=== PATIENT | female | born 2000 | race Hispanic/Latino ===

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

== ENCOUNTER 2020-02-18 21:43 | Emergency (ER) | payer OTHER | END 2020-02-18 22:16 | disposition home or self-care (01) | LOC: ERS 21:43 | DX: K02.9 Dental caries, unspecified (principal) | CPT/HCPCS: 99282 ==

== ENCOUNTER 2020-02-19 23:25 | Emergency (ER) | payer OTHER, SELFPAY ==
[~2020-02-19 23:25] MED LIST: Iopamidol-370 76% 500 ML 1 ML ONE
[2020-02-19] MEDS ORDERED: Clindamycin/D5W 600 mg/50 ml Premix Bag ONE (23:43)
[2020-02-19 23:59] LABS: #Lymphocytes 0.8 thou/uL (1.20-3.40); #Monocytes 0.6 thou/uL (0.11-0.59); #Neutrophils 10.2 thou/uL (1.40-6.50); %Basophils 0.1 % (0.0-1.0); %Eosinophils 0.1 % (0.0-10.0); %Lymphocytes 7.1 % (28.0-48.0); %Monocytes 5.4 % (0.0-4.0); %Neutrophils 87.3 % (31.0-61.0); Hemoglobin 14.4 g/dL (12.0-16.0); Mean Corpuscular HGB CONC 32.9 g/dL (32.0-36.0); Mean Corpuscular Hemoglobin 31.1 pg (25.0-35.0); Mean Corpuscular Volume 94.5 fL (78.0-98.0); Mean Platelet Volume 9.2 fL (7.4-10.4); Platelet Count 174 thou/uL (130-400); RBC Distribution Width 11.3 % (11.5-14.5); Red Blood Cell (RBC) Count 4.63 mill/uL (4.00-5.20); White Blood Cell (WBC) Count 11.7 thou/uL (4.8-10.8)
[2020-02-20] MEDS ORDERED: Acetaminophen 500 MG TAB ONE (00:09)
[2020-02-20 00:19] LABS: BHCG - Serum Negative (NEGATIVE); Pregs Control Background? CLEAR/WHITE (CLR/WHITE); Pregs Control Bar Appear? YES (CONTROL BAR)
[2020-02-20 00:20] LABS: ALT (SGPT) 8 U/L (8-55); AST (SGOT) 11 U/L (5-34); Albumin 4.8 g/dL (3.5-5.0); Alkaline Phosphatase 71 U/L (40-100); Anion Gap 14 mmol/L (10-20); BUN (Urea Nitrogen) 7 mg/dL (7.0-18.7); Bilirubin, Total 1.3 mg/dL (0.2-1.2); Calc. Creatinine Clearance 0 mL/min (70-130); Calcium 9.9 mg/dL (7.8-10.44); Carbon Dioxide 27 mmol/L (22-29); Chloride 99 mmol/L (98-107); Estimated GFR-MDRD Greater than 90; Globulin 3.4 g/dL (2.4-3.5); Glucose 135 mg/dL (70-105); Potassium 4.1 mmol/L (3.5-5.1); Protein, Total 8.2 g/dL (6.0-8.3); Sodium 136 mmol/L (136-145)
[2020-02-20] MEDS ORDERED: Lidocaine 1% (PF) 30 ML VIAL ONE (00:43)
--- NOTE | 2020-02-20 07:33 | CT ---
PRELIMINARY REPORT/[facility]/EMERGENCY AFTER HOURS PROCEDURE: A subtle lucency is seen in the left frontal incisor in the alveolar ridge; images [id number]. Possible odontogenic cyst. Osteomyelitis is also in the differential. Findings were discussed over the phone with Dr. Alejo at 12:36am REHAB TECH on 02/20/2020. Addendum electronically signed by Bj Andrade MD on February 20, 2020 12:40:[address] OF THE FACIAL BONES/SINUSES WITH IV CONTRAST CLINICAL HISTORY: Facial swelling and tooth ache. TECHNIQUE: Serial axial images obtained. Sagittal reconstructed images obtained. Coronal reconstru cted images obtained. Exam is performed with 100 mL of Isovue-370 intravenous contrast. Per PQRS, CT exam is performed using one or more of the following dose reduction techniques: Automated exposure control, adjustment of the mA and/or KV according to patient size, or use of iterative reconstruction techniques. COMPARISON: None. FINDINGS: Focal dental abscess is seen anterior to the left maxilla measuring 7.1 x 16 x 17 mm, w ith surrounding soft tissue edema consistent with cellulitis. Negative for acute fracture. The globes and orbits are unremarkable. The pterygoid plates, zygomatic arches, temporomandibular joints , and mandible are unremarkable. Sinuses are clear. Mastoid air spaces are clear. Middle ear cavities are clear. Negative for enhancing mass lesion following contrast administration. IMPRESSION: 1. Focal dental abscess is seen anterior to the left maxilla measuring 7.1 x 16 x 17 mm with surround ing soft tissue cellulitis. 2. Negative for acute fracture. No evidence for sinusitis. Negative for enhancing mass lesion followi ng contrast administration. Request for telephone communication was submitted through the [facility] communication system. ELECTRONICALLY SIGNED BY: Bj Andrade MD Feb 20, 2020 12:30:07 AM CDT FINAL REPORT FACIAL BONE CT WITH CONTRAST: HISTORY: Toothache on Monday. Facial swelling. Evaluate for abscess. FINDINGS: Appropriate enhancement of the brain parenchyma. Visualized orbits are intact. Induration of the subcutaneous fat in the left periorbital region extending along the anterior aspect of the left face down to the level of the left mandible. There does not appear to be a drainable soft tissue abscess. There is periapical lucency with erosion of the cortex along the anterior midlin e aspect of the left maxilla corresponding to tooth #9 and 10. Adequate aeration of the sinuses. No maxillofacial fracture. IMPRESSION: 1. This report is in agreement with initial report by [facility]. 2.. Periapical abscess involving the 9th and 10th teeth. Transcribed Date/Time: 02/20/2020 8:12 AM
== END 2020-02-20 01:10 | disposition home or self-care (01) ==
LOC: ERS 23:25
DX: K04.7 Periapical abscess without sinus (principal); L03.211 Cellulitis of face
CPT/HCPCS: 41800; 70487; 80053; 83605; 84703; 85025; 87040; 96365; J2001; J3490; Q9967